=== PATIENT | female | born 1990 | race Two or more races ===

== ENCOUNTER 2018-08-22 00:08 | Inpatient (IN) ==
[2018-08-22] MEDS ORDERED: METHYLERGONOVINE MALEATE 0.2 MG/1 ML VIAL IM PRN (00:18)
[2018-08-22] MEDS ORDERED: diphenhydrAMINE 50 MG/1 ML VIAL IVP PRN ×2 (00:18→13:34)
[2018-08-22] MEDS ORDERED: BUTORPHANOL TARTRATE 2 MG/1 ML VIAL IVP PRN (00:18)
[2018-08-22] MEDS ORDERED: LIDOCAINE HCL 2 % 10 ML JELLY URO-JECT TOPICAL PRN ×2 (00:18→13:34)
[2018-08-22] MEDS ORDERED: Naloxone Inj 0.01 MG in Sodium Chloride 0.9% vial 1 ML IVP PRN (00:18)
[2018-08-22] MEDS ORDERED: NALOXONE 0.4 MG/1 ML VIAL IVP PRN (00:18)
[2018-08-22] MEDS ORDERED: CITRIC ACID/SODIUM CITRATE 30 ML CUP PO PRN (00:18)
[2018-08-22] MEDS ORDERED: OXYTOCIN 10 UNIT/1 ML IM PRN (00:18)
[2018-08-22] MEDS ORDERED: MISOPROSTOL 200 MCG TABLET RECTAL PRN (00:18)
[2018-08-22] MEDS ORDERED: Nalbuphine Inj 20 MG/ML Ampule IVP PRN ×2 (00:18→13:34)
[2018-08-22] MEDS ORDERED: CALCIUM CARBONATE 500 MG (TUMS) CHEWABLE TABLET PO PRN ×2 (00:18→13:34)
[2018-08-22] MEDS ORDERED: LIDOCAINE W/ SODIUM BICARB 0.5 ML SYR SUBD PRN (00:18)
[2018-08-22] MEDS ORDERED: Lidocaine 1% 10 MG/ML - 20 ML VIAL SUBCUT PRN (00:18)
[2018-08-22] MEDS ORDERED: Zolpidem Tab 5 MG TAB PO PRN (00:18)
[2018-08-22] MEDS ORDERED: ONDANSETRON 4 MG/2 ML VIAL IVP PRN ×2 (00:18→13:34)
[2018-08-22] MEDS ORDERED: FAMOTIDINE 20 MG/2 ML VIAL IVP PRN ×2 (00:18)
[2018-08-22] MEDS ORDERED: Carboprost Inj 250 MCG/ML AMP IM PRN (00:18)
[2018-08-22] MEDS ORDERED: CefOXitin Inj 2 GM in Sodium Chloride 0.9% 100 ML IV PRN (00:18)
[2018-08-22] MEDS ORDERED: ePHEDrine Inj 50 MG/ML AMP IVP PRN (00:18)
[2018-08-22] MEDS ORDERED: TERBUTALINE SULFATE 1 MG/1 ML SDV SUBCUT PRN (00:18)
[2018-08-22] MEDS ORDERED: Phenylephrine Inj 50 MCG in Sodium Chloride 0.9% vial 0.5 ML IVP PRN (00:18)
[2018-08-22] MEDS ORDERED: fentaNYL Inj 100 MCG/2 ML VIAL IV PRN (00:18)
[2018-08-22] MEDS ORDERED: Metoclopramide Inj 10 MG/2 ML VIAL IV PRN (00:18)
[2018-08-22] MEDS ORDERED: Misoprostol Tab 100 MCG TAB VAGINAL PRN (00:18)
[2018-08-22] MEDS ORDERED: Oxytocin 20 Units + LR 20 UNIT/1,000 ML BAG IV SCH ×3 (00:30→13:34)
[2018-08-22] MEDS: Lactated Ringers-OB Dept 1,000 ML PRIMARY IV SCH ×3 (01:00→10:33)
[2018-08-22 01:12] LABS: Hematocrit [HCT] 37.3 % (37.0-47.0); Hemoglobin [HGB] 12.6 g/dL (12.0-16.0); MEAN CORPUSCULAR HEMOGLOBIN 31.5 PG (27-31); MEAN CORPUSCULAR HGB CONC 33.8 g/dL (33-37); MEAN CORPUSCULAR VOLUME 93.3 FL (81-99); MEAN PLATELET VOLUME 10.6 FL (7.4-12.2)
--- NOTE | 2018-08-22 08:50 | OB.PROGRES ---
Date of Service: 08/22/18 Time of Service: 08:41 Interval History: 27 yo at 39 0/7 weeks gestation, admitted early this morning for elective IOL. She has received 1 dose of cytotec 25 mcg pv x1 at 0130, she has contracted regularly since then. notable for diagnosis of HSV at about 23 weeks. She did also have HAs in the beginning of that improved with magnesium. She also had a case of astrovirus. PMH - HAs, h/o drug use PSH - none FH - mom - bladder cancer, tachycardia, HTN Niece (brother's daughter), Prader willi Lupus on maternal side of the family Unknown FH of FOB [facility] - [employer] [facility] [place], Quit smoking even before +UPT, ETOH in early and reports wine here and there, h/o illicit drug use, used meth in last , says she has been clean since then, not tempted Objective - Cervical Exam Cervical Exam: 2/60/-2, posterior, moderate thickness [place]: q2-5 min Heart Rate: baseline 125, mod variability, accels, no decels Heart Rate Interpretation Category: Category I - Labs CBC and BMP: 08/22/18 01:00 - Vital Signs Last Taken Vital Signs: Vital Signs - Last Taken Temperature 98.2 F 08/22/18 07:30 Pulse Rate 82 08/22/18 07:30 Respiratory Rate 20 08/22/18 07:30 Blood Pressure 121/83 08/22/18 07:30 Pulse Ox 97 08/22/18 07:30 Assessment and Plan - Patient Problems (1) Term Current Visit: Yes Status: Acute Code(s): Z34.90 - Encounter for supervision of normal , unspecified, unspecified trimester (2) 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 Current Visit: Yes Status: Acute Code(s): O98.519 - Other viral diseases complicating , unspecified trimester; B00.9 - Herpesviral infection, unspecified (3) Methamphetamine abuse in remission Current Visit: No Status: Chronic Code(s): F15.11 - Other stimulant abuse, in remission (4) H/O pre-term labor Current Visit: No Status: Chronic Code(s): Z87.51 - Personal history of pre- term labor Support Text: 27 yo at 39 0/7 weeks gestation Will start pitocin, AROM when cervix is more anterior GBS negative On Valtrex for HSV ppx Urine drug screen negative Continue close observation with expectant management
[2018-08-22] MEDS ORDERED: valACYclovir Tab 500 MG TAB PO SCH (09:00)
[2018-08-22] MEDS ORDERED: Lidocaine/Epi Inj 1.5% 5 ML AMPUL EPIDURAL ONE (09:51)
[2018-08-22] MEDS ORDERED: Fent/Bupiv 2mcg/0.0625% Epid 250 ML ONE (09:51)
[2018-08-22 10:24] LABS: AMPHETAMINE SCREEN NEGATIVE (NEG); CANNABINOID SCREEN,URINE NEGATIVE (NEG); COCAINE SCREEN NEGATIVE (NEG); METHADONE URINE SCREEN NEGATIVE (NEG); METHAMPHETAMINES SCREEN,URINE NEGATIVE (NEG); OPIATE SCREEN,URINE NEGATIVE (NEG); TRICYCLIC ANTIDEPRESSANT,URINE NEGATIVE (NEG); URINE SAMPLE TYPE CLEAN CATCH URINE; URINE SPECIFIC GRAVITY - MAN 1.006
--- NOTE | 2018-08-22 13:03 | OB.DEL.SUM ---
Delivery Note Delivery Summary: 27 yo G4 now P3104 at 39 0/7 weeks gestation presented early this morning for IOL. She received one dose of cytotec 25 mcg pv, was on 1-2 mU of pitocin. AROM at about 1030, clear fluid. She progressed rapidly after that to completed. She pushed over the course of 5 contractions and delivered a TAGA male in PADMINI position, over an intact perineum with epidural anesthesia at 1208. No nuchal cord. Head, shoulders and body were delivered easily. Infant was bulb suctioned, placed on mom's chest. Cord clamping was delayed 1 minute. Cord was doubly clamped and cut by the father. Her placenta delivered spontaneously, intact with a 3 vessel cord at 1228. The vagina and perineum were inspected, no tears were n oted. EBL 350 cc. Mom and baby tolerated delivery well. Apgars 8, 10. 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
[2018-08-22] MEDS ORDERED: Ondansetron ODT Tab 4 MG TAB PO PRN (13:34)
[2018-08-22] MEDS ORDERED: diphenhydrAMINE 25 MG CAPSULE PO PRN (13:34)
[2018-08-22] MEDS ORDERED: Lidocaine 1% 10 MG/ML - 20 ML VIAL INTRADERM PRN (13:34)
[2018-08-22] MEDS ORDERED: GLYCERIN/WITCH HAZEL 1 BOX TOPICAL PRN (13:34)
[2018-08-22] MEDS ORDERED: BENZOCAINE/MENTHOL SPRAY 56 GM BOTTLE TOPICAL PRN (13:34)
[2018-08-22] MEDS ORDERED: LANOLIN HPA 40 GM TUBE TOPICAL PRN (13:34)
--- NOTE | 2018-08-22 13:39 | CRNA.PROGR ---
Anesthesia Time - Procedure/Recovery Time Start Date: 08/22/18 End Date: 08/22/18 Anesthesia : Time In: 09:50 Anesthesia : Time Out: 10:25 Anesthesia : Total Time: 35 - Total Anesthesia Time Total Anesthesia Time (minutes): 35 - Other Weight: 83.007 kg Height: 5 ft 2 in Body Mass Index (BMI): 33.5 Physical Status: P2 Obstetrics: Planned vaginal delivery w/ neuraxial labor anesthesia/analog
--- NOTE | 2018-08-22 13:40 | CRNA.PROCE ---
Central Neuraxis Block Placemt - - Safety Measures: Time Out Taken, Site Verified - - Type of Block: Epidural Reason for Block: Analgesia Moniters Used During Block: SPO2, NIBP Positioning: Sitting Skin Prep Used: ChloroPrep Skin Infiltration - Enter Amount Used in Comment Field: 1% Xylocaine (mL): Yes (wheal) Introducer User: 18 Gauge Alexis Local Anesthetic - Enter Amount Used in Comment Field: 1.5 % Xylocaine with Epinephrine 1:200,000 (mL): Yes (5ml) Number of Centimeters Catheter Threaded: 4 Bioclusive Dressing Applied: Yes Anesthesia Time - Other Weight: 83.007 kg Height: 5 ft 2 in Body Mass Index (BMI): 33.5
[2018-08-22] MEDS ORDERED: fentaNYL 2 MCG/BUPIVACAINE 0.0625%/NS 0.9% 250 ML BAG EPIDURAL SCH (13:45)
[2018-08-22] MEDS: IBUPROFEN 800 MG TABLET PO PRN (19:20)
[2018-08-22] MEDS: DOCUSATE 100 MG CAPSULE PO SCH (21:00)
[2018-08-22] MEDS ORDERED: Sertraline Tab 50 MG TAB PO SCH (21:00)
[2018-08-23] MEDS: ACETAMINOPHEN 325 MG TABLET PO PRN ×2 (01:35→10:43)
[2018-08-23] MEDS: IBUPROFEN 800 MG TABLET PO PRN (05:41)
[2018-08-23 07:40] VITALS: BP 122/78; RESP 16; TEMP 98.3; O2SAT 97
[2018-08-23 07:43] LABS: Hematocrit [HCT] 35.6 % (37.0-47.0); Hemoglobin [HGB] 11.8 g/dL (12.0-16.0); MEAN CORPUSCULAR HEMOGLOBIN 31.1 PG (27-31); MEAN CORPUSCULAR HGB CONC 33.1 g/dL (33-37); MEAN CORPUSCULAR VOLUME 93.9 FL (81-99); MEAN PLATELET VOLUME 10.8 FL (7.4-12.2); RED BLOOD COUNT 3.79 10^6/uL (4.20-5.40)
[2018-08-23] MEDS ORDERED: HYDROCORTISONE 25 MG SUPPOSITORY RECTAL PRN (08:42)
--- NOTE | 2018-08-23 08:49 | DCSUMMARY ---
Hospitalization Summary Admit Date: 08/22/18 Discharge Date: 08/23/18 Primary Diagnosis:: Elective IOL, s/p Delivery Type: Vaginal Hospital Course: 27 yo G4 now P3104 was admitted at 39 0/7 weeks gestation for elective IOL. She has a h/o precipitous delivery and lives far from our hospital. She was given 1 dose of 25mcg cytotec pv with minimal cervical change but consistent contractions. She was started on low dose pitocin. Once her cervix was more anterior AROM was accomplished. She then progressed rapidly to complete, pushed over 5 contractions to the delivery of a TAGA male infant. Patient does have a h/o HSV2. She was on prophylactic valtrex at the end of and does not have any active lesions. / Postop Complications: She has had some cramping pain and hemorrhoid pain pos . This has been controlled with tylenol/ibuprofen, we will also try a steroid suppository today Complications: none apparent Exam - Vitals Vital Signs: Vital Signs Temperature 98.3 F Temperature Source Oral Pulse Rate [Pulse Oximeter] 83 Pulse Rate [right index finger 74 ] Pulse Rate 65 Respiratory Rate 16 Blood Pressure [Right Arm] 122/78 Blood Pressure 123/77 Pulse Ox [right index finger] 99 Pulse Ox 97 Oxygen Delivery Method [right Room Air index finger] Oxygen Delivery Method Room Air Height 5 ft 2 in Weight 183 lb - General General Appearance: No Acute Distress - Head Head Exam: Normal Inspection - Respiratory Respiratory Exam: POSITIVE: Clear to Auscultation - Bilaterally, Breathing Non Labored - Cardiovascular Cardiovascular Exam: POSITIVE: RRR - GI/Abdominal Additional GI/Abdominal Exam Details: uterus firm below umbilicus - Extremities Extremities Exam: POSITIVE: +1 Edema - Neurological Neurological Exam: POSITIVE: Alert, Oriented x 3 - Psychiatric Psychiatric Exam: POSITIVE: Normal Affect, Normal Mood Patient Problems - Patient Problem List (1) Term Current Visit: Yes Status: Acute Code(s): Z34.90 - Encounter for supervision of normal , unspecified, unspecified trimester Category: Medical (2) 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 Current Visit: Yes Status: Acute Code(s): O98.519 - Other viral diseases complicating , unspecified trimester; B00.9 - Herpesviral infection, unspecified Category: Medical (3) Methamphetamine abuse in remission Current Visit: No Status: Chronic Code(s): F15.11 - Other stimulant abuse, in remission Category: Medical (4) H/O pre-term labor Current Visit: No Status: Chronic Code(s): Z87.51 - Personal history of pre- term labor Support Text: 27 yo G4 now P3013 s/p -Pain ok, trying to avoid narcotics given h/o methamphetamine abuse -Hemorrhoids - will trial steroid suppository prior to d/c -H/o HSV 2 - will plan to continue valtrex ppx -Breast feeding - continue PNV -Plan to do Mirena for pp contraception Category: Medical
[2018-08-23] MEDS ORDERED: Prenatal Multivitamin Tab 1 TAB TAB PO SCH (09:00)
[2018-08-23] MEDS ORDERED: DOCUSATE 100 MG CAPSULE PO SCH (09:00)
[2018-08-23] MEDS: DOCUSATE 100 MG CAPSULE PO SCH (10:43)
== END 2018-08-23 14:15 | disposition home or self-care (01) | DRG 807 ==
LOC: OBIP 00:12
PROVIDERS: ADMIT Student in an Organized Health Care Education/Training Program; ATTEND Student in an Organized Health Care Education/Training Program